=== PATIENT | male | born 1965 | race Caucasian/White ===

== ENCOUNTER 2025-05-08 07:51 | Emergency (ER) | payer OTHER ==
[~2025-05-08] VITALS: Ht 175.3 cm; Wt 81.6 kg
[2025-05-08 07:54] VITALS: O2SAT 96
[2025-05-08] MEDS ORDERED: TRIA80OI TP (08:26)
[2025-05-08] MEDS ORDERED: PRED50TA PO (08:26)
[2025-05-08] MEDS ORDERED: HYDR-501 PO (08:26)
== END 2025-05-08 08:54 | disposition home or self-care (01) ==
LOC: ER 07:51
DX: R21 Rash and other nonspecific skin eruption (principal); I10 Essential (primary) hypertension; Z98.890 Other specified postprocedural states
CPT/HCPCS: 99283; 82962; J7512; A4606; A4663